=== PATIENT | female | born 1970 | race African-American/Black ===

== ENCOUNTER 2025-07-15 01:34 | Emergency (ER) | payer BC ==
[~2025-07-15] VITALS: Ht 165.1 cm; Wt 73.0 kg
[2025-07-15 01:46] VITALS: O2SAT 100
[2025-07-15 02:17] LABS: CLARITY URINE CLEAR (CLEAR); COLOR URINE YELLOW (YELLOW); GLUCOSE URINE NEGATIVE (NEGATIVE); KETONES URINE NEGATIVE (NEGATIVE); LEUKOCYTE ESTERASE URINE TRACE (NEGATIVE); NITRITE URINE NEGATIVE (NEGATIVE); OCCULT BLOOD URINE NEGATIVE (NEGATIVE); PH URINE 6.5 (4.5-8.0); PROTEIN URINE NEGATIVE (NEGATIVE); SPECIFIC GRAVITY URINE 1.006 (1.005-1.030); UROBILINOGEN URINE 0.2 E.U./dL (0.2-1.0)
[2025-07-15 02:39] LABS: BASOPHILS % 0.5 % (0.0-2.0); EOSINOPHILS % 2.2 % (0.0-5.0); HEMATOCRIT. 39.5 % (36.0-48.0); HEMOGLOBIN. 13.5 g/dL (12.0-16.0); LYMPHOCYTES % 44.0 % (20.0-50.0); MEAN PLATELET VOLUME 8.2 fl (7.4-10.4); MONOCYTES % 7.4 % (2.0-8.0); NEUTROPHILS % 45.9 % (40.0-76.0); PLATELET 247 x1000/uL (130-400); RED BLOOD CELL COUNT 4.24 mill/uL (4.2-5.4); RED CELL DISTRIBUTION WIDTH 13.3 % (11.6-14.6)
[2025-07-15 02:40] LABS: INR 1.0
[2025-07-15 02:42] LABS: CREATININE 1.1 mg/dL (0.6-1.0); UREA NITROGEN BLOOD 9 mg/dL (9-23)
[2025-07-15 02:42] LABS: *AMPHETAMINES SCREEN URINE NEGATIVE (NEGATIVE); *BARBITURATES SCREEN URINE NEGATIVE (NEGATIVE); *BENZODIAZEPINES SCREEN URINE NEGATIVE (NEGATIVE); *COCAINE SCREEN URINE NEGATIVE (NEGATIVE); CANNABINOID URINE SCREEN NEGATIVE (NEGATIVE); METHADONE URINE SCREEN NEGATIVE (NEGATIVE); OPIATES URINE SCREEN NEGATIVE (NEGATIVE); PHENCYCLIDINE URINE SCREEN NEGATIVE (NEGATIVE)
[2025-07-15 02:43] LABS: ECSTASY MDMA SCREEN URINE NEGATIVE (NEGATIVE)
[2025-07-15 02:43] LABS: ETHANOL BLOOD < 10 mg/dL (<10)
[2025-07-15 02:44] LABS: ASPARTATE AMINOTRANSFERASE 23 IU/L (<34); TROPONIN I HIGH SENSITIVITY < 4 ng/L (3.0-34)
[2025-07-15 02:45] LABS: BILIRUBIN DIRECT < 0.1 mg/dL (<=3.0); BILIRUBIN TOTAL 0.4 mg/dL (0.1-1.0); PROTEIN TOTAL 7.6 g/dL (6.0-8.3)
[2025-07-15 02:55] LABS: HCG SCREEN NEGATIVE
[2025-07-15 03:04] LABS: SQUAMOUS EPITHELIAL CELL URINE 3+ /lpf (RARE/1+)
[2025-07-15 03:05] LABS: BACTERIA URINE TRACE; RBC URINE NONE SEEN /hpf (0-2); YEAST URINE 1+
[2025-07-15] MEDS: MECLIZINE 25MG TABLET PO ONE (03:13)
[2025-07-15] MEDS: SODIUM CHLORIDE 0.9% 1,000 ML IV ONE (03:15)
[2025-07-15] MEDS ORDERED: MECL-217 MT (03:35)
[2025-07-15 04:21] VITALS: BP 129/82; PULSE 74; RESP 10; TEMP 36.7; O2SAT 97
== END 2025-07-15 04:21 | disposition home or self-care (01) ==
LOC: ER 01:34 → CMPBEDREQ 05:11
DX: R53.1 Weakness (principal); R42 Dizziness and giddiness; R00.2 Palpitations; I10 Essential (primary) hypertension; Z79.899 Other long term (current) drug therapy
CPT/HCPCS: 80076; 80305; 80048; 81003; 80320; 84703; 83880; 83735; 85025; 85610; 85730; 84484; 36415; 71045; 70450; 93005; 99285; J8597; J7030; G0480